=== PATIENT | female | born 1950 | race Caucasian/White ===

== ENCOUNTER 2018-04-01 15:11 | Emergency (ER) | payer BC, MEDICARE ==
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
== END 2018-04-01 17:35 | disposition home or self-care (01) ==
LOC: ERS 15:11
DX: S09.90XA Unspecified injury of head, initial encounter (principal); S46.911A Strain of unspecified muscle, fascia and tendon at shoulder and upper arm level, right arm, initial encounter; E10.9 Type 1 diabetes mellitus without complications; E03.9 Hypothyroidism, unspecified; I10 Essential (primary) hypertension; V43.62XA Car passenger injured in collision with other type car in traffic accident, initial encounter
CPT/HCPCS: 70450; 71046

== ENCOUNTER 2020-09-24 11:31 | Emergency (ER) | payer MEDICARE, BC ==
--- NOTE | 2020-09-24 12:34 | RAD ---
XR Chest 1 View Portable History: COVID pneumonia. Cough Comparison: Chest radiograph 2018 Findings: Multifocal peripheral airspace opacities. No pneumothorax. No effusion. Heart size is castro l. No acute osseous abnormality. Impression: Commonly reported imaging findings of COVID-19 pneumonia.
[2020-09-24] MEDS ORDERED: Ketorolac Tromethamine 30 MG/ML VIAL ONE (12:48)
[2020-09-24] MEDS ORDERED: Dexamethasone 10 MG/ML VIAL ONE (13:41)
== END 2020-09-24 13:54 | disposition home or self-care (01) ==
LOC: ERS 11:31
DX: U07.1 COVID-19 (principal); E11.9 Type 2 diabetes mellitus without complications; E03.9 Hypothyroidism, unspecified; I10 Essential (primary) hypertension; J44.9 Chronic obstructive pulmonary disease, unspecified; M19.90 Unspecified osteoarthritis, unspecified site
CPT/HCPCS: 71045; 96374; J1100; J1885